=== PATIENT | female | born 1995 | race Caucasian/White ===

== ENCOUNTER 2017-07-23 09:39 | Emergency (ER) | payer BC, OTHER ==
[~2017-07-23] VITALS: Ht 167.6 cm; Wt 63.1 kg
[2017-07-23 09:43] VITALS: Ht 167.6 cm; Wt 63.1 kg
[2017-07-23] MEDS ORDERED: IBUPROFEN 600 MG TAB PO STA (09:57)
[2017-07-23] MEDS ORDERED: BCPILLS PO (10:05)
--- NOTE | 2017-07-23 10:24 | DIAGNOSTIC IMAGING REPORT ---
R ANKLE MIN 3 VIEWS ROUTINE CLINICAL HISTORY: right ankle pain, inversion injury pain. Trauma. COMPARISON: None. DISCUSSION: The bones and joint spaces appear intact. There is no evidence of fracture, dislocation or bony disease. Mild lateral soft tissue edema IMPRESSION: Negative study. Mild lateral soft tissue edema The above report was generated using voice recognition software. It may contain grammatical, syntax or spelling errors. Electronically signed by: Emil Chi M.D. 07/23/2017 10:22 AM Dictated Date/Time: 07/23/2017 10:22 AM
--- NOTE | 2017-07-23 10:55 | EMERGENCY ROOM VISIT NOTE ---
History First contact with patient: 09:47 Chief Complaint: ANKLE PAIN Stated Complaint: RT ANKLE SPRAIN, PAIN, HARD TO WALK History of Present Illness The patient is a 22 year old female who presents to the Emergency Room with complaints of a right ankle injury. Patient reports that she jumped up and landed onto an inverted right ankle last night. She has had pain in the outside of the ankle and difficulty walking since then. She states that when she is at rest, she just feels a tight sensation in the ankle, but she has pain which she rates a 6/10 with any movement. She states the pain is sharp. It is worse on the outside of the ankle, but she does also have mild pain on the inside of the ankle. She denies any previous injury to this ankle. She denies numbness or weakness. She has not taken any medication for her ankle pain. Review of Systems A complete 10 point review of systems was reviewed with the patient with pertinent positives and negatives as per history of present illness. All else were negative. Past Medical/Surgical History Surgical Problems: (1) History of knee surgery Social History Smoking Status: Never Smoker Alcohol Use: occasionally Housing Status: lives with roommate Occupation Status: [employer] student Current/Historical Medications Scheduled Control Pills ( Control Pills), 1 TAB PO DAILY Physical Exam Vital Signs Date Time Temp Pulse Resp B/P (MAP) Pulse Ox O2 Delivery O2 Flow Rate FiO2 07/23/17 11:10 36.6 91 18 129/69 99 07/23/17 11:07 91 18 129/69 99 Room Air 07/23/17 09:43 36.6 94 20 118/82 96 Room Air Physical Exam VITALS: Vitals are noted on the nurse's note and reviewed by myself. Vital signs stable. GENERAL: This is a 22-year-old female, in no acute distress, nondiaphoretic, well-developed well-nourished. SKIN: Capillary reflex less than 2 seconds. MUSCULOSKELETAL: No deformities. Mild swelling and tenderness noted over the lateral aspect of the right ankle. Full range of motion of the ankle strength 5 /5 throughout. Full plantarflexion and dorsiflexion. NEURO: Patient was alert and oriented to person place and time. Normal sensation to light and sharp touch. Medical Decision & Procedures ER Provider Diagnostic Interpretation: R ANKLE MIN 3 VIEWS ROUTINE CLINICAL HISTORY: right ankle pain, inversion injury pain. Trauma. COMPARISON: None. DISCUSSION: The bones and joint spaces appear intact. There is no evidence of fracture, dislocation or bony disease. Mild lateral soft tissue edema IMPRESSION: Negative study. Mild lateral soft tissue edema Medications Administered Medications (Trade) Dose Ordered Sig/Cheri Route Start Time Stop Time Status Last Admin Dose Admin Ibuprofen (Motrin Tab) 600 mg NOW STAT PO 07/23/17 09:57 07/23/17 09:59 DC 07/23/17 10:21 600 MG Medical Decision Differential diagnosis includes fracture, sprain, contusion, dislocation, among others. The patient was seen and evaluated as above. X-ray of the right ankle was obtained and reviewed by radiology with no acute findings. Patient was placed in a gel ankle splint and crutches. Conservative measures were discussed. She was treated with ibuprofen here for pain. She will follow-up with orthopedics at home as needed. She verbalized understanding of my assessment and treatment plan and was discharged home in good condition. Medication Reconcilliation Current Medication List: was personally reviewed by me Blood Pressure Screening Patient's blood pressure: Normal blood pressure Impression Primary Impression: Right ankle sprain Departure Information Dispostion Home / Self-Care Condition GOOD Referrals No Doctor, Assigned (PCP) Patient Instructions My [facility] Additional Instructions You have been treated in the Emergency Department for an Ankle sprain. For pain control, you can use the following [id number] medicines (if >12 yo): - Regular strength (325mg/tab) Tylenol (acetaminophen) 2 tabs every 4-6 hours as needed. Do not exceed 12 tablets in a 24 hour period. Avoid taking more than 4 grams (4000 mg) of Tylenol per day. This includes any other sources of acetaminophen you may take on a regular basis. - Regular strength (200 mg/tab) Advil (ibuprofen) 1-2 tabs every 4-6 hours as needed. Do not exceed a dose of 3200 mg per day. If this is a recent injury (<24 hrs), ice can be applied to the area of pain for the first 3 days to help decrease pain and inflammation. Where the ankle brace and use the crutches to keep weight off the ankle for the next 3-4 days or until you are able to walk on the ankle without difficulty. If you have persistent or worsening pain/difficulty walking, follow-up with your orthopedist for recheck. Return to the Emergency Department if your current symptoms worsen despite treatment course outlined above, or if you develop any of the following symptoms : intractable pain despite aforementioned treatment course or new onset of numbness or tingling of the foot. Problem Qualifiers Primary Impression: Right ankle sprain Encounter type: initial encounter Involved ligament of ankle: unspecified ligament Qualified Codes: S93.401A - Sprain of unspecified ligament of right ankle, initial encounter
[2017-07-23 11:10] VITALS: BP 129/69; PULSE 91; TEMP 36.6; O2SAT 99
== END 2017-07-23 11:10 | disposition home or self-care (01) ==
LOC: C.EDB 09:41 → C.EDC 11:10
DX: S93.401A Sprain of unspecified ligament of right ankle, initial encounter (principal); X58.XXXA Exposure to other specified factors, initial encounter; Z79.3 Long term (current) use of hormonal contraceptives; Z98.890 Other specified postprocedural states

== ENCOUNTER 2017-08-11 14:45 | Emergency (ER) | payer SELFPAY ==
[~2017-08-11] VITALS: Ht 167.6 cm; Wt 59.4 kg
[~2017-08-11 14:45] MED LIST: BCPILLS PO
[2017-08-11 14:49] VITALS: TEMP 36.6; Ht 167.6 cm; Wt 59.4 kg
--- NOTE | 2017-08-11 15:26 | DIAGNOSTIC IMAGING REPORT ---
CHEST ONE VIEW PORTABLE HISTORY: 22 years-old Female R sided CP acute atypical chest pain, most pronounced on the right COMPARISON: None available TECHNIQUE: Portable AP view of the chest FINDINGS: Cardiomediastinal and hilar silhouettes are within normal limits. There is no pneumothorax, pleural effusion, focal airspace consolidation or overt pulmonary edema. Bones of the chest appear grossly intact. No acute displaced rib fracture identified. IMPRESSION: No acute process. The above report was generated using voice recognition software. It may contain grammatical, syntax or spelling errors. Electronically signed by: Bill Braxton M.D. 08/11/2017 3:25 PM Dictated Date/Time: 08/11/2017 3:24 PM
--- NOTE | 2017-08-11 15:29 | EMERGENCY ROOM VISIT NOTE ---
History First contact with patient: 14:56 Chief Complaint: CHEST PAIN Stated Complaint: CHEST AND BACK PAIN History of Present Illness The patient is a 22 year old female who presents to the Emergency Room with complaints of right-sided chest pain for approximately the last week. She describes it as an uncomfortable sensation Underneath her right breast radiating to her right scapula. It is worse with deep inspiration, sneezing and coughing. The patient reports having a cold 2 weeks ago. Those symptoms have improved. She denies any shortness of breath. The patient does take control. She denies any long recent travel. She reports spraining her ankle a few weeks ago. No other trauma. No history of blood clots. Review of Systems 10 system review performed and negative unless noted in HPI or below Past Medical/Surgical History Surgical Problems: (1) History of knee surgery Social History Smoking Status: Never Smoker Alcohol Use: occasionally Housing Status: lives with roommate Occupation Status: [employer] student Current/Historical Medications Scheduled Control Pills ( Control Pills), 1 TAB PO DAILY Physical Exam Vital Signs Date Time Temp Pulse Resp B/P (MAP) Pulse Ox O2 Delivery O2 Flow Rate FiO2 08/11/17 19:11 80 20 138/74 98 08/11/17 17:34 80 20 138/74 98 Room Air 08/11/17 16:39 74 16 129/69 94 Room Air 08/11/17 15:33 100 Room Air 08/11/17 14:49 36.6 111 18 141/102 100 Room Air Physical Exam VITALS: Vitals are noted on the nurse's note and reviewed by myself. Vital signs stable. GENERAL: 22-year-old female, in no acute distress, nondiaphoretic, well- developed well-nourished. SKIN: The skin was without rashes, erythema, edema, or bruising. HEAD: Normocephalic atraumatic. MOUTH: Mucous membranes moist. Tonsils are not enlarged. Pharynx without erythema or exudate. Uvula midline. Airway patent. Tongue does not deviate. NECK: Supple without nuchal rigidity. No lymphadenopathy. Cervical spine is nontender. No JVD. HEART: Regular rate and rhythm without murmurs gallops or rubs. LUNGS: Clear to auscultation bilaterally without wheezes, rales or rhonchi. No accessory muscle use. No tenderness to palpation over the Thora ABDOMEN: Positive bowel sounds x 4.Soft, MUSCULOSKELETAL: No muscle atrophy, erythema, or edema noted. Strength 5/5 throughout. NEURO: Patient was alert and oriented to person place and time. Normal sensation to touch. No focal neurological deficits. Medical Decision & Procedures ER Provider Diagnostic Interpretation: CTA chest IMPRESSION: 1. No evidence of pulmonary embolus. No acute intrathoracic pathology. Minimal bibasilar atelectasis. Electronically signed by: Yong Cooley M.D. 08/11/2017 5:10 PM Dictated Date/Time: 08/11/2017 5:05 PM CXR IMPRESSION: No acute process. The above report was generated using voice recognition software. It may contain grammatical, syntax or spelling errors. Electronically signed by: Bill Braxton M.D. 08/11/2017 3:25 PM Laboratory Results 08/11/17 15:27 Red Blood Count 4.36, Mean Corpuscular Volume 86.9, Mean Corpuscular Hemoglobin 30.0, Mean Corpuscular Hemoglobin Concent 34.6, Mean Platelet Volume 9.5, Neutrophils (%) (Auto) 64.0, Lymphocytes (%) (Auto) 29.0, Monocytes (%) (Auto) 6.1, Eosinophils (%) (Auto) 0.4, Basophils (%) (Auto) 0.4, Neutrophils # (Auto) 4.27, Lymphocytes # (Auto) 1.94, Monocytes # (Auto) 0.41, Eosinophils # (Auto) 0.03, Basophils # (Auto) 0.03 08/11/17 15:27 Test 08/11/17 15:27 08/11/17 15:28 White Blood Count 6.69 K/uL (4.8-10.8) Red Blood Count 4.36 M/uL (4.2-5.4) Hemoglobin 13.1 g/dL (12.0-16.0) Hematocrit 37.9 % (37-47) Mean Corpuscular Volume 86.9 fL (80-100) Mean Corpuscular Hemoglobin 30.0 pg (25-34) Mean Corpuscular Hemoglobin Concent 34.6 g/dl (32-36) Platelet Count 343 K/uL (130-400) Mean Platelet Volume 9.5 fL (7.4-10.4) Neutrophils (%) (Auto) 64.0 % Lymphocytes (%) (Auto) 29.0 % Monocytes (%) (Auto) 6.1 % Eosinophils (%) (Auto) 0.4 % Basophils (%) (Auto) 0.4 % Neutrophils # (Auto) 4.27 K/uL (1.4-6.5) Lymphocytes # (Auto) 1.94 K/uL (1.2-3.4) Monocytes # (Auto) 0.41 K/uL (0.11-0.59) Eosinophils # (Auto) 0.03 K/uL (0-0.5) Basophils # (Auto) 0.03 K/uL (0-0.2) RDW Standard Deviation 43.7 fL (36.4-46.3) RDW Coefficient of Variation 13.7 % (11.5-14.5) Immature Granulocyte % (Auto) 0.1 % Immature Granulocyte # (Auto) 0.01 K/uL (0.00-0.02) D-Dimer 450 ug/L FEU (0-500) Anion Gap 5.0 mmol/L (3-11) Est Creatinine Clear Calc Drug Dose 96.5 ml/min Estimated GFR () 111.1 Estimated GFR (Non- 95.9 BUN/Creatinine Ratio 15.7 (10-20) Calcium Level 8.9 mg/dl (8.5-10.1) Total Bilirubin 0.4 mg/dl (0.2-1) Aspartate Amino Transf (AST/SGOT) 17 U/L (15-37) Alanine Aminotransferase (ALT/SGPT) 23 U/L (12-78) Alkaline Phosphatase 50 U/L (45-117) Total Creatine Kinase 82 U/L (26-192) Creatine Kinase MB < 0.5 ng/ml (0.5-3.6) Creatine Kinase MB Ratio (0-3.0) Troponin I < 0.015 ng/ml (0-0.045) Total Protein 8.1 gm/dl (6.4-8.2) Albumin 3.9 gm/dl (3.4-5.0) Globulin 4.2 gm/dl (2.5-4.0) Albumin/Globulin Ratio 0.9 (0.9-2) Lipase 88 U/L (73-393) Urine Test NEG (NEG) ED Course Patient was seen and examined Vital signs including blood pressure were reviewed medications list was verified with patient Labs were obtained, and a saline lock was established An EKG was performed and reviewed. The patient was put on a monitor. Imaging was performed and reviewed Upon reevaluation, the patient was resting comfortably. I discussed the results of her workup. She voiced understanding. She requested an ultrasound. This was performed and reviewed The patient was again reassessed and resting comfortably. We discussed her workup at length. She voiced understanding. I offered to call the patient's cousin who is a doctor. She declined. I reviewed discharge instructions the patient. They voiced understanding and had no further questions. Medical Decision Differential diagnosis: Costochondritis, other musculoskeletal pain, PE acute myocardial infarction, cardiac arrhythmia, anemia, thyroid abnormality, pneumothorax, pneumonia, bronchitis, pericarditis, electrolyte imbalance This patient is a 22-year-old female presents to the emergency department with complaints of right-sided chest pain worse with deep inspiration, coughing and sneezing. On exam, she was nontoxic in appearance. There is no hypoxia. Her d -dimer was borderline. I ordered a CT of the chest, which was negative for any signs of PE. The patient's cousin is an oncologist and requested an ultrasound of both of her legs to rule out DVT. This was performed per her request. Her EKG shows no signs of ischemia or infarction. This pain is likely musculoskeletal in nature. I believe she is stable to be discharged home. She will follow-up with [facility] next week for recheck, and agrees to return with any new or concerning symptoms This chart was completed in part utilizing [employer] Voice Recognition software. Attempts were made to minimize the grammatical errors, random word insertions, pronoun errors and incomplete sentences. Any formal questions or concerns about the content, text or information contained within the body of this dictation should be directly addressed to the provider for clarification. Medication Reconcilliation Current Medication List: was personally reviewed by me Blood Pressure Screening Patient's blood pressure: Elevated blood pressure Blood pressure disposition: Did not require urgent referral Impression Primary Impression: Chest pain Departure Information Dispostion Home / Self-Care Condition GOOD Referrals Andrey Blancas D.O. (PCP) Patient Instructions My [facility] Additional Instructions You were evaluated in the emergency department for right-sided chest pain. There are no signs of blood clots in your lungs or legs. This pain is likely musculoskeletal in nature Please try ibuprofen 600 mg every 8 hours as needed for pain Please follow-up with [facility] next week for recheck Do not hesitate to return to the emergency department with any new, worsening or concerning symptoms It was a pleasure participating in your care today.
[2017-08-11 15:49] LABS: BASO % 0.4 %; BASO ABS # 0.03 K/uL (0-0.2); EOS % 0.4 %; EOS ABS # 0.03 K/uL (0-0.5); HEMATOCRIT 37.9 % (37-47); HEMOGLOBIN 13.1 g/dL (12.0-16.0); IG# 0.01 K/uL (0.00-0.02); LYMPH ABS # 1.94 K/uL (1.2-3.4); MEAN CELL VOLUME 86.9 fL (80-100); MEAN CORPUSCULAR HGB CONC 34.6 g/dl (32-36); MEAN PLATELET VOLUME 9.5 fL (7.4-10.4); MONO % 6.1 %; MONO ABS # 0.41 K/uL (0.11-0.59); NEUT ABS # 4.27 K/uL (1.4-6.5); PLATELET COUNT 343 K/uL (130-400); RED CELL DISTRIBUTION WIDTH CV 13.7 % (11.5-14.5); RED CELL DISTRIBUTION WIDTH SD 43.7 fL (36.4-46.3); WHITE BLOOD COUNT 6.69 K/uL (4.8-10.8)
[2017-08-11] MEDS ORDERED: OPTIRAY 320 IV PRN (16:15)
[2017-08-11 16:17] LABS: ALBUMIN 3.9 gm/dl (3.4-5.0); ALT/SGPT 23 U/L (12-78); AST/SGOT 17 U/L (15-37); BLOOD UREA NITROGEN 14 mg/dl (7-18); CALCIUM 8.9 mg/dl (8.5-10.1); CARBON DIOXIDE 26 mmol/L (21-32); CREATININE 0.87 mg/dl (0.60-1.20); GLUCOSE 105 mg/dl (70-99); LIPASE 88 U/L (73-393); POTASSIUM 3.6 mmol/L (3.5-5.1); SODIUM 138 mmol/L (136-145)
[2017-08-11 16:26] LABS: ALKALINE PHOSPHATASE 50 U/L (45-117); CKMB < 0.5 ng/ml (0.5-3.6); TOTAL PROTEIN 8.1 gm/dl (6.4-8.2)
--- NOTE | 2017-08-11 17:11 | DIAGNOSTIC IMAGING REPORT ---
(CHEST FOR PE) ANGIO WITH CLINICAL HISTORY: 22 years-old Female presenting with ^R sided CP r/o PE. TECHNIQUE: Multidetector CT angiography of the chest was performed after administration of intravenous contrast. 3-D volumetric and/or maximum intensity projection (MIP) images were subsequently reconstructed for review. IV contrast: 86 mL of Optiray 320. A dose lowering technique was used consistent with the principles of ALARA (as low as reasonably achievable). COMPARISON: Chest x-ray performed the same day. CT DOSE (mGy.cm): The estimated cumulative dose is 191.47 mGy.cm. FINDINGS: Systems Program Manager topogram: Unremarkable. Pulmonary vasculature: The study is adequate for assessment of the pulmonary vascular tree. No filling defect within the pulmonary arteries to suggest embolus. Main pulmonary artery is not enlarged. No flattening of the interventricular septum. No intracardiac filling defect. No reflux of contrast into the hepatic veins. Remaining chest: On soft tissue windows, normal thyroid and thoracic inlet. No axillary, supraclavicular, hilar, or mediastinal lymphadenopathy. Four-vessel aortic arch. Normal heart size. No pericardial or pleural effusion. Upper abdomen normal. On lung windows, minimal dependent changes likely atelectasis. No other focal nodule or infiltrate. Airways patent. On bone windows, normal osseous structures. IMPRESSION: 1. No evidence of pulmonary embolus. No acute intrathoracic pathology. Minimal bibasilar atelectasis. Electronically signed by: Yong Cooley M.D. 08/11/2017 5:10 PM Dictated Date/Time: 08/11/2017 5:05 PM
--- NOTE | 2017-08-11 18:10 | DIAGNOSTIC IMAGING REPORT ---
VENOUS DOPPLER LWR EXT BILA CLINICAL HISTORY: 22 years-old Female presenting with right-sided chest pain, clinical concern for pulmonary embolus per family member request r/o DVT bilaterally. TECHNIQUE: Real-time grayscale and color and spectral Doppler ultrasound imaging of the veins of the bilateral lower extremities was performed. Compression and augmentation were also utilized. COMPARISON: None. FINDINGS: Right: Common femoral vein: Patent. Greater saphenous vein: Patent. Deep femoral vein: Patent. Femoral vein: Patent. Popliteal vein: Patent. Calf veins: Patent. Left: Common femoral vein: Patent. Greater saphenous vein: Patent. Deep femoral vein: Patent. Femoral vein: Patent. Popliteal vein: Patent. Calf veins: Patent. Other: None. IMPRESSION: No evidence of deep venous thrombosis. Electronically signed by: Yong Cooley M.D. 08/11/2017 6:08 PM Dictated Date/Time: 08/11/2017 6:07 PM
[2017-08-11 19:11] VITALS: BP 138/74; PULSE 80; O2SAT 98
== END 2017-08-11 19:11 | disposition home or self-care (01) ==
LOC: C.EDB 14:47 → C.EDA 19:11
DX: R07.9 Chest pain, unspecified (principal); Z79.3 Long term (current) use of hormonal contraceptives